=== PATIENT | female | born 1985 | race Caucasian/White ===

== ENCOUNTER → 2024-06-24 14:05 | Outpatient (CLI) | payer OTHER, SELFPAY ==
--- NOTE | 2024-06-24 | DI.MRI.S_ITS ---
PROCEDURE: MR HAND LT WO CON INDICATIONS: LEFT HAND WEAKNESS TECHNIQUE: Noncontrast coronal T1 spin echo and T2 fast spin echo with fat saturation, axial proton density fast spin echo and T2 fast spin echo with fat saturation, sagittal T1 spin echo and STIR through the hand and fingers. COMPARISON: [facility], RG, WRIST COMP MIN 3VW (LT), 04/12/2024, 14:34. FINDINGS: Image quality: Excellent. Bones: The bones are normally aligned, without marrow contusions or fractures. No intra-osseous lesions. No gross bony erosive changes. Interphalangeal joint(s): The accessory and proper collateral ligaments appear intact. The volar plate demonstrates normal morphology. The extensor central slips appear intact on sagittal images. Metacarpophalangeal joint(s): The accessory and proper collateral ligaments appear intact, as well as the volar plate and adjacent deep transverse metacarpal ligaments. The sagittal bands of the extensor mendiola appear normal. Extensor apparatus: The central slips insert normally on the middle phalangeal base. The conjoint and terminal tendons insert normally on the distal phalangeal bases. More proximal portions of the extensor tendons also appear normal. Flexor apparatus: The flexor digitorum superficialis and profundus tendons both appear intact. All annular and cruciform pulleys appear intact, without adjacent soft tissue edema. Soft tissues: Visualized muscles demonstrate normal bulk and internal signal. No intramuscular masses identified. 7 x 4 millimeters cystic structure dorsal to the scaphoid is seen deep to the 2nd extensor compartment. IMPRESSION: 1. No marrow edema. No fracture or dislocation. No gross bony erosive changes. No suspicious intraosseous lesions. 2. No signal abnormality is seen in muscles and tendons of the left hand. 3. No soft tissue mass or drainable fluid collection. 7 x 4 millimeter ganglion cyst in dorsal aspect of left wrist as above. Dictated by: Alex Gonzalez M.D. on 06/26/2024 at 11:02 Approved by: Alex Gonzalez M.D. on 06/26/2024 at 11:29
== END ==
PROVIDERS: Referring Provider Orthopaedic Surgery; Visit Provider Orthopaedic Surgery
DX: M67.432 Ganglion, left wrist (principal); R29.898 Other symptoms and signs involving the musculoskeletal system
CPT/HCPCS: 73218